=== PATIENT | male | born 1965 | race Caucasian/White ===

== ENCOUNTER 2018-02-27 16:18 | Emergency (ER) | payer BC, OTHER ==
[~2018-02-27] VITALS: Ht 172.7 cm; Wt 99.8 kg
[~2018-02-27 16:18] MED LIST: ESOM20CA PO
[2018-02-27 16:37] VITALS: BP 143/100
== END 2018-02-27 17:55 | disposition home or self-care (01) ==
LOC: ER 16:23
DX: S00.83XA Contusion of other part of head, initial encounter (principal); S83.502A Sprain of unspecified cruciate ligament of left knee, initial encounter; S00.03XA Contusion of scalp, initial encounter; V18.4XXA Pedal cycle driver injured in noncollision transport accident in traffic accident, initial encounter; Y93.89 Activity, other specified; Y99.8 Other external cause status; Y92.89 Other specified places as the place of occurrence of the external cause
CPT/HCPCS: 70450; 73562